=== PATIENT | female | born 1940 | race Caucasian/White ===

== ENCOUNTER 2017-12-26 21:16 | Emergency (ER) | payer MEDICARE, OTHER ==
--- NOTE | 2017-12-26 22:09 | XRAY Report ---
Reason: left shoulder pain after fall. Y view only per Procedure Date: 12/26/2017 Accession Number: [id number] / [id number] Procedure: XR - Shoulder 1 View LT CPT Code: FULL RESULT: EXAM: LEFT HUMERUS AND SHOULDER RADIOGRAPHY EXAM DATE: 12/26/2017 09:58 PM. CLINICAL HISTORY: Left upper arm injury. COMPARISON: SHOULDER 3 VIEW LT 12/26/2017 9:46 PM. TECHNIQUE: 2 views of the humerus and one view of the shoulder. FINDINGS: Bones: Normal. No fractures or bone lesions. Joints: Normal. No effusions or subluxations in the visualized shoulder or elbow joints. Soft Tissues: Normal. No soft tissue swelling. IMPRESSION: Negative left humerus/shoulder radiography. [facility]
--- NOTE | 2017-12-26 22:09 | XRAY Report ---
Reason: injury Procedure Date: 12/26/2017 Accession Number: [id number] / [id number] Procedure: XR - Humerus LT CPT Code: FULL RESULT: EXAM: LEFT HUMERUS AND SHOULDER RADIOGRAPHY EXAM DATE: 12/26/2017 09:58 PM. CLINICAL HISTORY: Left upper arm injury. COMPARISON: SHOULDER 3 VIEW LT 12/26/2017 9:46 PM. TECHNIQUE: 2 views of the humerus and one view of the shoulder. FINDINGS: Bones: Normal. No fractures or bone lesions. Joints: Normal. No effusions or subluxations in the visualized shoulder or elbow joints. Soft Tissues: Normal. No soft tissue swelling. IMPRESSION: Negative left humerus/shoulder radiography. [facility]
--- NOTE | 2017-12-26 22:20 | ED Physician Documentation ---
PD HPI UPPER EXT INJURY - Stated complaint Stated Complaint: LT SHOULDER PX - Chief complaint Chief Complaint: Ext Problem - Additonal information Additional information: 77-year-old female presents the emergency department with left shoulder pain and humerus pain for the past several weeks after injury. The patient fell again today striking the same area and has had worsening pain today. The patient denies injury to her head, neck, torso or lower extremities. Symptoms are described as moderate. No relieving factors. Pain is worse with range of motion and improves with rest. Review of Systems Constitutional: denies: Fever Nose: denies: Congestion Throat: denies: Sore throat Cardiac: denies: Chest pain / pressure Respiratory: denies: Cough Musculoskeletal: reports: Extremity pain, Joint pain. denies: Neck pain Immunocompromised: denies: Chemotherapy PD PAST MEDICAL HISTORY - Past Medical History Past Medical History: Yes Cardiovascular: Angina Respiratory: Asthma Neuro: Migraines Endocrine/Autoimmune: Other GI: GERD, Hiatal hernia Psych: Depression, Anxiety, Bipolar disorder Musculoskeletal: Fibromyalgia, Osteoporosis, Other Other Past Medical History: IBS, Hypoglycemia, Diverticulitis - Past Surgical History Past Surgical History: Yes General: Cholecystectomy Ortho: Other /[employer]: section, Hysterectomy HEENT: Cataracts, Tonsil/Adenoidectomy - Present Medications Home Medications: Ambulatory Orders Medication Instructions Recorded Confirmed Albuterol Sulfate [Proair Hfa 1 puffs PO Q4HR PRN 12/26/17 12/26/17 Inhaler] Aspirin [Adult Aspirin] 81 mg PO DAILY 12/26/17 12/26/17 Cilostazol [Pletal] 100 mg PO BID 12/26/17 12/26/17 Cyanocobalamin (Vitamin B-12) 1 cap PO DAILY 12/26/17 12/26/17 [Vitamin B-12] Paroxetine HCl [Paxil] 20 mg PO DAILY 12/26/17 12/26/17 Pravastatin Sodium 20 mg PO DAILY 12/26/17 12/26/17 Trazodone HCl 100 mg PO DAILY PRN 12/26/17 12/26/17 lamoTRIgine [Lamictal] 200 mg PO DAILY 12/26/17 12/26/17 - Allergies Allergies/Adverse Reactions: Allergies Allergy/AdvReac Type Severity Reaction Status Date / Time atorvastatin [From Lipitor] Allergy Unknown Verified 12/26/17 21:25 clarithromycin [From Biaxin] Allergy Unknown Verified 12/26/17 21:25 diclofenac [From Voltaren] Allergy Edema Verified 12/26/17 21:23 NSAIDS (Non-Steroidal Allergy Unknown Verified 12/26/17 21:25 Anti-Inflamma pravastatin [From Pravachol] Allergy Unknown Verified 12/26/17 21:25 - Social History Does the pt smoke?: No Smoking Status: Never smoker Does the pt drink ETOH?: No Does the pt have substance abuse?: No - Immunizations Immunizations are current?: Yes PD ED PE NORMAL - General General: Alert and oriented X 3, No acute distress - HEENT HEENT: Atraumatic, PERRL, EOMI, Ears normal - Derm Derm: Normal color - Extremities Extremities: No deformity, Normal ROM s pain, No edema. No: No tenderness to palpate (The patient has tenderness to palpation in the left shoulder through the mid 2 distal humerus. There is no crepitus or obvious deformity. The patient appears to have normal range of motion of the shoulder and elbow. There is no laceration. The patient is a normal radial pulse and brisk cap refill) - Neuro Neuro: Alert and oriented X 3, Normal speech Results - Vitals Vitals: Vital Signs - 24 hr 12/26/17 21:20 Temperature 36.5 C Heart Rate 94 Respiratory 17 Rate Blood Pressure 124/96 H O2 Saturation 100 Oxygen O2 Source Room air - Rads (name of study) XR humerus Radiology: Final report received (Negative left humerus/shoulder radiography.) PD MEDICAL DECISION MAKING - ED course ED course: I discussed with the patient and her family the findings on x-ray. I recommended close follow-up with primary care. I discussed that this could represent a injury to the rotator cuff and advised outpatient physical therapy and possibly an outpatient MRI. They understand and agree. I discussed warning signs and recommended returning to the emergency department for any worsening or concerns. - Sepsis Event Vital Signs: Vital Signs - 24 hr 12/26/17 21:20 Temperature 36.5 C Heart Rate 94 Respiratory 17 Rate Blood Pressure 124/96 H O2 Saturation 100 Oxygen O2 Source Room air Departure - Departure Disposition: 01 Home, Self Care Clinical Impression: Upper arm pain Qualifiers: Laterality: unspecified laterality Qualified Code(s): M79.629 - Pain in unspecified upper arm Condition: Good Instructions: ED Contusion Upper Extr Ch Comments: Please follow-up with primary care this coming week for recheck and reevaluation. Please ask your primary care to arrange for outpatient physical therapy. If your symptoms do not improve he may need a MRI to further assess your pain. Please return to the emergency department for any worsening or any concerns.
[2017-12-26 22:24] VITALS: BP 110/59
== END 2017-12-26 22:26 | disposition home or self-care (01) ==
LOC: ED 21:16
DX: M25.512 Pain in left shoulder (principal); Z91.81 History of falling
CPT/HCPCS: 99282; 99283